=== PATIENT | female | born 1955 | race Caucasian/White ===

== ENCOUNTER → 2025-08-09 13:50 | Outpatient (REF) | payer MEDICARE, OTHER, SELFPAY | LOC: EMG 13:50 | PROVIDERS: ATTENDING PHYSICIAN Physical Medicine & Rehabilitation; FAMILY PHYSICIAN Internal Medicine | DX: M54.12 Radiculopathy, cervical region (principal); M48.02 Spinal stenosis, cervical region; R20.0 Anesthesia of skin | CPT/HCPCS: 95886; 95909 ==